=== PATIENT | male | born 1935 | race Caucasian/White ===

== ENCOUNTER → 2020-12-11 | Outpatient (CLI) | payer MEDICARE ==
--- NOTE | 2020-12-11 12:50 | XR ---
EXAMINATION TYPE: XR chest 2V DATE OF EXAM: 12/11/2020 COMPARISON: NONE HISTORY: Preoperative TECHNIQUE: Frontal and lateral views of the chest are obtained. FINDINGS: Low lung volumes. Heart size is mildly enlarged. Atherosclerotic aneurysmal tortuous thora cic aorta. Minimal bibasilar airspace opacities suggestive of atelectasis or scarring. No pleural eff usion or pneumothorax. No focal consolidation. 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 IMPRESSION: 1. Atherosclerotic, aneurysmal tortuous thoracic aorta. 2. Minimal bibasilar atelectasis or scarring. 3. Cardiomegaly.
== END | disposition home or self-care (01) ==
LOC: RADXRYALE 10:30
PROVIDERS: ATTEND Physician Assistant Medical
DX: I71.2 Thoracic aortic aneurysm, without rupture (principal); I51.7 Cardiomegaly
CPT/HCPCS: 71046

== ENCOUNTER → 2022-02-17 | Outpatient (CLI) | payer MEDICARE ==
--- NOTE | 2022-02-17 11:52 | FL ---
EXAMINATION TYPE: FL barium swallow w video DATE OF EXAM: 02/17/2022 MODIFIED SWALLOW / DEGLUTITION STUDY CLINICAL HISTORY: Dysphagia. History of pituitary brain tumor. Regurgitation and cough. TECHNIQUE: Deglutition study is performed utilizing thin liquid barium, honey and nectar thick liqui d barium, and barium thick capsule.. 2 minutes 58 of fluoro time and 0 images obtained. COMPARISON: None. FINDINGS: The oral and pharyngeal phases show satisfactory initiation and propagation with all modali ties tested. There is no evidence of penetration or aspiration with any modality tested. Mild-to-mod erate pharyngeal residue was appreciated. Patient had coughing episodes. Evaluation of the esophagus showed poor motility with abnormal secondary and tertiary contractions throughout mid to distal aspec ts. IMPRESSION: No aspiration observed. Underlying esophageal dysmotility seen. Please refer to speech t herapist notes for further details if necessary.
== END | disposition home or self-care (01) ==
LOC: RADFLMAIN 10:59
PROVIDERS: ATTEND Family Medicine
DX: R13.10 Dysphagia, unspecified (principal)
CPT/HCPCS: 74230

== ENCOUNTER 2022-06-24 07:18 | Day surgery (SDC) | payer MEDICARE ==
[~2022-06-24 07:18] MED LIST: LACTATED RINGERS 1,000 ML IV SCH; LIDOCAINE 1% (10MG/ML) FOR IV START INTRADERMA PRN
[2022-06-24 07:58] VITALS: TEMP 97.6
[2022-06-24] MEDS ORDERED: LIDOCAINE 2% INJ 20 MG/ML (2 ML VIAL) ONE (08:13)
[2022-06-24] MEDS ORDERED: PROPOFOL 10 MG/ML 20 ML VIAL IV ONE (08:13)
--- NOTE | 2022-06-24 08:26 | P.PCN ---
Date of Procedure: 06/24/22 Procedure(s) Performed: BRIEF HISTORY: Patient is a 86-year-old, pleasant, white male male scheduled for an upper endoscopy as a part of evaluation of intermittent dysphagia to solids for the last 2 years duration. However for the last 6 months the dysphagia she has been progressively getting worse and lately has been almost daily basis. Start on Prilosec 20 mg daily 6 months ago with no help. Recent barium swallow showed no evidence of aspiration but there was some suggestion of esophageal dysmotility.. PROCEDURE PERFORMED: Esophagogastroduodenoscopy with biopsy. PREOPERATIVE DIAGNOSIS: Progressive dysphagia to solids and liquids for the last 6 months duration. IV sedation per anesthesia. PROCEDURE: After informed consent was obtained, the patient was brought into the endoscopy unit. IV sedation was administered by Anesthesia under continuous monitoring. Initially the Olympus GIF-140 video endoscope was inserted into the mouth. Esophagus intubated without any difficulty. It was gradually advanced into the stomach and duodenum and carefully examined. The bulb and the second part of the duodenum appeared normal. The scope at this time was withdrawn to the stomach, adequately insufflated with air, and upon careful examination, mucosa of the antrum, body, cardia and the fundus appeared normal. The scope was then withdrawn into the esophagus. Small hiatal hernia noted. The GE junction was located at 39 cm from the incisors. The esophagus appeared normal. There were no erosions or ulcerations seen . Biopsies were done from the midesophagus. There was evidence of some esophageal dysmotility. The proximal cervical esophagus was carefully examined and no evidence of Zenker's diverticulum noted. The patient tolerated the procedure well. IMPRESSION: 1. Normal-appearing esophagus with no evidence of esophagitis or esophageal stricture. 2. Small hiatal hernia. RECOMMENDATIONS: The findings of this examination were discussed with the patient as well as his family. He was advised to follow with the biopsy results. Continue with soft diet and small frequent meals. Follow up in the office in 3-4 weeks..
[2022-06-24 08:53] VITALS: BP 131/72; PULSE 73; RESP 16
== END 2022-06-24 09:20 | disposition home or self-care (01) ==
LOC: ORWHC2ENDO 07:18
PROVIDERS: ATTEND Internal Medicine Gastroenterology
DX: R13.10 Dysphagia, unspecified (principal); K22.89 Other specified disease of esophagus
CPT/HCPCS: 88305; 43239; J2704; J2001